=== PATIENT | female | born 1995 | race Caucasian/White ===

== ENCOUNTER → 2017-03-25 | Outpatient (CLI) | payer OTHER ==
[~2017-03-25] MED LIST: DESO1TAB33 PO; HYDR200T5 PO; LORA5TAB3 PO; MONT1TAB3 PO; SUMA100T16 PO
--- NOTE | 2017-03-25 19:46 | DIAGNOSTIC IMAGING REPORT ---
MRI OF THE LEFT KNEE CLINICAL HISTORY: Left knee twisting injury. COMPARISON STUDY: No priors. TECHNIQUE: MRI of the left knee was performed utilizing proton density, T1, and T2-weighted sequences in the axial, sagittal, coronal planes. IV contrast was not administered for this examination. Note that interpretation is suboptimal without plain film correlate. FINDINGS: Menisci: The medial and lateral menisci are intact. Ligaments: The anterior and posterior cruciate ligaments are intact. The lateral collateral ligament complex is within normal limits. There is grade 2 injury with partial-thickness tear involving the medial collateral ligament which involves the anterior fibers. The posterior fibers are intact. Fluid is seen superficial to the ligament. Extensor mechanism: The extensor mechanism is intact. Hoffa's fat pad is normal in appearance. Articular cartilage and bone: The articular cartilage is intact and well maintained all 3 compartments. There is a mild marrow edema seen involving the posterior aspect of the lateral femoral condyle. Normal marrow signal intensity is otherwise preserved throughout the visualized bony structures. Joint effusion: There is only trace joint effusion. Soft tissues: There is deep soft tissue edema seen along the anteromedial aspect of the knee. The musculature surrounding the knee joint is normal in bulk and signal intensity. IMPRESSION: 1. Partial-thickness tear of the medial collateral alignment. 2. The menisci, the cruciate ligament, the lateral collateral complex appear preserved. 3. There is deep soft tissue edema identified along the anteromedial aspect of the knee. 4. Trace joint effusion. 5. Mild marrow edema is seen involving the posterior aspect of the lateral femoral condyle and may represent mild contusion. Electronically signed by: Reji Lopez M.D. 03/25/2017 7:44 PM Dictated Date/Time: 03/25/2017 7:39 PM
== END | disposition home or self-care (01) ==
LOC: C.MRI 17:14
PROVIDERS: ATTEND Family Medicine
DX: S83.412A Sprain of medial collateral ligament of left knee, initial encounter (principal); X58.XXXA Exposure to other specified factors, initial encounter

== ENCOUNTER → 2018-02-11 | Outpatient (CLI) | payer OTHER ==
--- NOTE | 2018-02-14 09:14 | PULMONARY FUNCTION TEST ---
CLINICAL DATA: A 22-year-old female with a height of 63 inches and a weight of [address] Julia Conley for evaluation of persistent asthma. Spirometry pre- and post-bronchodilator were performed. FINDINGS: Pre-bronchodilator spirometry was within normal limits. FVC was 92% predicted. FEV1 was 93% of predicted. [id number] was 91% of predicted. There was very minimal change after inhaled bronchodilator. FVC improved 2% to 94% of predicted. FEV1 improved 3% to 96% of predicted. [id number] improved 8% to 98% of predicted. IMPRESSION: Normal baseline spirometry with very slight improvement after inhaled bronchodilator consistent with the clinical diagnosis of asthma. MTDD
== END | disposition home or self-care (01) ==
LOC: C.RC 11:15
PROVIDERS: ATTEND Family Medicine
DX: J45.40 Moderate persistent asthma, uncomplicated (principal)